=== PATIENT | female | born 1970 | race Caucasian/White ===

== ENCOUNTER 2017-11-27 00:53 | Outpatient (CLI) | payer MEDICARE, OTHER, SELFPAY ==
[2017-11-27 08:56] LABS: ALT 18 U/L (12-78); AST 13 U/L (15-37); Albumin 3.1 g/dL (3.4-5.0); Alkaline Phosphatase 60 U/L (46-116); Anion Gap 8.6 mmol/L (3-11); BUN 15 mg/dL (7-18); Bilirubin, Total 0.4 mg/dL (0.2-1.0); CO2 26.4 mmol/L (21.0-32.0); CREATININE 1.06 mg/dL (0.55-1.02); Calcium 8.6 mg/dL (8.5-10.1); Chloride 106 mmol/L (98-107); Cholesterol 130 mg/dL (50-200); Estimated GFR 55.57 (mL/min/1.73m2); Glucose 83 mg/dL (70-100); HDL Cholesterol 71 mg/dL (40-60); LDL CHOLESTEROL 48 mg/dL (<100); Sodium 141 mmol/L (136-145); TSH (W/Ref FT4) 0.82 uIU/mL (0.358-3.74); Total Protein 6.4 g/dL (6.4-8.2); Triglyceride 69 mg/dL (30-150)
== END 2017-11-27 01:13 ==
DX: R00.2 Palpitations (principal); E03.9 Hypothyroidism, unspecified; F41.9 Anxiety disorder, unspecified; F32.9 Major depressive disorder, single episode, unspecified; M79.18 Myalgia, other site; E66.9 Obesity, unspecified
CPT/HCPCS: 36415; 80053; 80061; 83721; 84443

== ENCOUNTER 2017-12-29 07:31 | Outpatient (CLI) | payer MEDICARE, OTHER, SELFPAY ==
[2017-12-29 09:05] LABS: T4 9.1 ug/dL (4.5-12.5)
[2018-01-01 10:50] LABS: DHEA Sulfate 143 ug/dl (56-283)
== END 2017-12-29 07:51 ==
PROVIDERS: Visit Provider Naturopath
DX: E03.9 Hypothyroidism, unspecified (principal); G47.00 Insomnia, unspecified
CPT/HCPCS: 36415; 82627; 84436; 84481

== ENCOUNTER 2018-07-12 08:06 | Outpatient (CLI) | payer MEDICARE, OTHER, SELFPAY ==
[2018-07-12 09:33] LABS: ALT 23 U/L (12-78); AST 13 U/L (15-37); Albumin 3.6 g/dL (3.4-5.0); Alkaline Phosphatase 93 U/L (46-116); Anion Gap 7.9 mmol/L (3-11); BUN 21 mg/dL (7-18); Bilirubin, Total 0.6 mg/dL (0.2-1.0); CO2 29.1 mmol/L (21.0-32.0); CREATININE 0.96 mg/dL (0.55-1.02); Calcium 9.3 mg/dL (8.5-10.1); Chloride 101 mmol/L (98-107); Glucose 83 mg/dL (70-100); Potassium 4.5 mmol/L (3.5-5.1); Sodium 138 mmol/L (136-145); T4 7.7 ug/dL (4.5-12.5); TSH 0.97 uIU/mL (0.358-3.74)
[2018-07-12 21:27] LABS: T3,Free 6.1 pg/ml (2.8-5.3)
[2018-07-13 10:11] LABS: Thyroglobulin Antibody 42 U/mL (<61)
[2018-07-13 10:26] LABS: DHEA Sulfate 440 ug/dl (56-283)
== END 2018-07-12 08:26 ==
PROVIDERS: Visit Provider Naturopath
DX: E03.9 Hypothyroidism, unspecified (principal)
CPT/HCPCS: 36415; 80053; 82627; 84436; 84443; 84481; 86800

== ENCOUNTER 2018-11-19 09:16 | Outpatient (CLI) | payer OTHER, SELFPAY ==
[2018-11-19 10:38] LABS: TSH (W/Ref FT4) 2.66 uIU/mL (0.36-3.74)
[2018-11-19 11:46] LABS: ALT 39 U/L (14-59); AST 32 U/L (15-37); Albumin 3.7 g/dL (3.4-5.0); Alkaline Phosphatase 96 U/L (46-116); Anion Gap 10.9 mmol/L (3-11); BUN 14 mg/dL (7-18); Bilirubin, Total 0.6 mg/dL (0.2-1.0); CO2 26.1 mmol/L (21.0-32.0); CREATININE 1.05 mg/dL (0.55-1.02); Calcium 9.4 mg/dL (8.5-10.1); Chloride 104 mmol/L (98-107); Estimated GFR 55.94 (mL/min/1.73m2); Glucose 94 mg/dL (70-100); Potassium 4.7 mmol/L (3.5-5.1); Sodium 141 mmol/L (136-145); T4 8.1 ug/dL (4.5-12.5); Total Protein 7.2 g/dL (6.4-8.2)
[2018-11-19 12:07] LABS: Vitamin D 25 Total 85.2 ng/ml (30-100)
[2018-11-19 12:33] LABS: Abs Immature Grans 0.03 k/cumm (0.0-0.09); Absolute Basophil Count 0.03 k/cumm (0.0-0.2); Absolute Eosinophil Count 0.26 k/cumm (0.0-0.7); Absolute Lymphocyte Count 1.66 k/cumm (1.2-3.4); Absolute Monocyte Count 0.61 k/cumm (0.11-0.7); Absolute Neutrophil Count 6.11 k/cumm (1.2-6.7); Basophils % 0.3; HCT 44.1 % (36.0-46.0); HGB 14.5 g/dL (12.0-15.5); Immature Grans % 0.3; Lymphocytes % 19.1; Mean Corp. HGB Concentration 32.9 g/dL (32.0-36.0); Mean Corpuscular Hemoglobin 30.4 pg (27.0-33.0); Mean Corpuscular Volume 92.5 fL (80-95); Mean Platelet Volume 10.9 fL (8.0-11.0); Neutrophils % 70.3; Platelet Count 344 x1000/uL (130-400); RBC 4.77 m/cumm (4.00-5.20); RBC Distribution Width 14.7 % (11.7-14.6)
[2018-11-19 16:12] LABS: T3,Free 4.5 pg/ml (2.8-5.3)
== END 2018-11-19 09:36 ==
PROVIDERS: Visit Provider Naturopath
DX: E03.9 Hypothyroidism, unspecified (principal); E55.9 Vitamin D deficiency, unspecified; R79.9 Abnormal finding of blood chemistry, unspecified
CPT/HCPCS: 36415; 80053; 82306; 84436; 84443; 84481; 85025

== ENCOUNTER 2019-01-18 00:42 | Outpatient (CLI) | payer OTHER, SELFPAY ==
--- NOTE | 2019-01-18 12:46 | DI.MAMMO_ITS ---
EXAM: MG MAMMO SCREENING CLINICAL HISTORY: screening TECHNIQUE: Bilateral full field digital CC and MLO mammographic images were obtained with 3D tomosyn thesis and utilizing computer aided detection (CAD). COMPARISON: Available for comparison. FINDINGS: Masses/Architectural Distortion: There is an area of breast asymmetry in the upper outer quadrant of the right breast. The area should be further evaluated with spot compression view. Ultrasound may b e indicated at that time. Microcalcifications: No suspicious pleomorphic-type are seen. Skin Thickening/Nipple Retraction: None. IMPRESSION: 1. Additional views of the right breast as described above. 2. Ultrasound may be indicated at that time. BI-RADS Cat 0 - Assessment Incomplete: Need additional imaging evaluation Breast Density - Category B - Scattered areas of fibroglandular density A negative radiographic report should not delay biopsy if a dominant or clinically suspicious mass is present. Up to ten percent of cancers are not identified on mammography. A negative report may reinforce clinical impression. Adenosis and dense breasts may obscure an underlying neoplasm. False positive reports average 6 to 10%. Patient will receive a letter notifying them of these results.
== END 2019-01-18 01:02 ==
PROVIDERS: PCP Nurse Practitioner; Visit Provider Nurse Practitioner
DX: Z12.31 Encounter for screening mammogram for malignant neoplasm of breast (principal); R92.8 Other abnormal and inconclusive findings on diagnostic imaging of breast
CPT/HCPCS: 77063; 77067

== ENCOUNTER 2019-01-23 00:58 | Outpatient (CLI) | payer OTHER, SELFPAY ==
--- NOTE | 2019-01-23 09:06 | DI.MAMMO_ITS ---
EXAM: US BREAST RT LIMITEDand mammogram call back views CLINICAL HISTORY: rt breast asymmetry, f/u mammo TECHNIQUE: Mammograms were interpreted according to the usual protocol including computer analysis w ith CAD system, tomosynthesis and C-view imaging. Ultrasound performed using standard protocol. COMPARISON: Screening Bilat Mammo from 11/17/2016 MG MAMMO SCREENING from 01/18/2019 MG MAMMO SCREEN CALL BACK UNI from 01/23/2019 FINDINGS: Additional view mammogram: The spot compression views with tomography were performed in the CC and M LO projections. There is a small area of circumscribed nodularity in the central right breast in the upper outer quadrant. There has been no change when compared with the previous exam. Right breast ultrasound: Right breast ultrasound shows no evidence of a cyst or solid mass. IMPRESSION: Category 1, negative mammogram. Yearly screening mammography is recommended. BI-RADS Cat 1 - Negative. Breast Density - Category B - Scattered areas of fibroglandular density.
== END 2019-01-23 01:18 ==
PROVIDERS: PCP Nurse Practitioner; Visit Provider Nurse Practitioner
DX: Z12.31 Encounter for screening mammogram for malignant neoplasm of breast (principal); R92.8 Other abnormal and inconclusive findings on diagnostic imaging of breast; N60.81 Other benign mammary dysplasias of right breast
CPT/HCPCS: 76642; 77063; 77067

== ENCOUNTER 2019-06-07 01:49 | Outpatient (CLI) | payer OTHER, SELFPAY ==
[2019-06-07 16:12] LABS: TSH (W/Ref FT4) 2.02 uIU/mL (0.36-3.74)
[2019-06-07 16:32] LABS: T4 7.5 ug/mL (4.7-13.3)
[2019-06-07 21:42] LABS: T3, Total 146 ng/dL (97-169)
== END 2019-06-07 02:09 ==
PROVIDERS: PCP Nurse Practitioner; Visit Provider Chiropractor
DX: R53.83 Other fatigue (principal)
CPT/HCPCS: 36415; 84436; 84443; 84480

== ENCOUNTER 2019-09-12 02:26 | Outpatient (CLI) | payer OTHER, SELFPAY ==
[2019-09-12 12:52] LABS: FREE T4 0.98 ng/dL (0.76-1.46); TSH 2.88 uIU/mL (0.36-3.74)
[2019-09-12 17:36] LABS: Progesterone 2.1 ng/mL (See Table)
[2019-09-13 09:04] LABS: DHEA Sulfate 132 ug/dL (56-283)
[2019-09-16 15:03] LABS: Estrone 151 pg/mL
[2019-09-17 15:07] LABS: Testosterone, Free 0.51 ng/dL (0.06-0.95); Testosterone, Total 32 ng/dL (8-60)
== END 2019-09-12 02:46 ==
PROVIDERS: PCP Nurse Practitioner; Visit Provider Naturopath
DX: N95.1 Menopausal and female climacteric states (principal); E03.9 Hypothyroidism, unspecified; E55.9 Vitamin D deficiency, unspecified
CPT/HCPCS: 36415; 82306; 82627; 84402; 84403; 82679; 84144; 84439; 84443; 84481

== ENCOUNTER 2019-12-25 13:48 | Outpatient (CLI) | payer OTHER, SELFPAY ==
--- NOTE | 2019-12-25 09:45 | DI.RAD_ITS ---
EXAM: XR KNEE RT 3V AP,LAT,TIFFANIE CLINICAL HISTORY: right knee pain M25.561. TECHNIQUE: 2D digital imaging was performed. COMPARISON: No exams were available for comparison FINDINGS: BONES: No acute fracture is present. No bony destructive lesion is seen. There is a small enthesophyt e at the superior patella. JOINTS: The knee is normally aligned. No joint effusion is seen. Tiny spurs are seen at the posterior patella and the lateral femoral tibial joint. SOFT TISSUE: Normal. IMPRESSION: Mild degenerative changes of the right knee. DATA REPOSITORY: RADIATION DOSE DELIVERED:
== END 2019-12-25 14:08 ==
PROVIDERS: PCP Nurse Practitioner; Visit Provider Nurse Practitioner Family
DX: M17.11 Unilateral primary osteoarthritis, right knee (principal)
CPT/HCPCS: 73562

== ENCOUNTER 2020-04-02 02:24 | Outpatient (CLI) | payer OTHER, SELFPAY ==
--- NOTE | 2020-04-02 12:15 | DI.MAMMO_ITS ---
EXAM: MG MAMMO SCREENING CLINICAL HISTORY: screening,Z12.39. TECHNIQUE: Bilateral full field digital CC and MLO mammographic images were obtained with 3D tomosyn thesis and utilizing computer aided detection (CAD). COMPARISON: Prior mammograms dating back to 2017, the most recent being January 2019. Breast ultra sound January 2019 was reviewed FINDINGS: There are no CAD designations. No new left breast findings. In the right breast there is a benign appearing noncalcified nodule loc ated 7 centimetres in from the nipple measuring 7 x 5 millimeters. This has appearance of benign int ramammary lymph node and appears unchanged from January 2019 and was also evident in 2017. There are no malignant-appearing microcalcification groups in this region or elsewhere in either breast. Ther e is no significant architectural distortion nor skin thickening-retraction. IMPRESSION: Stable benign findings. No radiographic evidence of malignancy. BI-RADS Category 2 - Benign Findings Breast Density - Category A - Almost entirely fatty Breast density Category C or D implies that the patient has dense breast tissue. Dense breast tissue can make it harder to find cancer on a mammogram. Dense breast tissue is also associated with an incr eased risk of breast cancer. This information about the result of the mammogram report was provided to the patient to raise their awareness. Use this report when you speak with the patient about their risks for breast cancer, which includes their family history. At that time, you may recommend additional screening tests (Ultrasoun d or MRI) as these tests may add significant information. A negative radiographic report should not delay biopsy if a dominant or clinically suspicious mass is present. Up to ten percent of cancers are not identified on mammography. A negative report may reinforce clinical impression. Adenosis and dense breasts may obscure an underlying neoplasm. False positive reports average 6 to 10%. Patient will receive a letter notifying them of these results.
== END 2020-04-02 02:25 ==
PROVIDERS: PCP Nurse Practitioner; Visit Provider Nurse Practitioner
DX: Z12.31 Encounter for screening mammogram for malignant neoplasm of breast (principal)
CPT/HCPCS: 77063; 77067

== ENCOUNTER 2020-04-20 07:10 | Outpatient (CLI) | payer OTHER, SELFPAY ==
[2020-04-20 13:17] LABS: Abs Immature Grans 0.05 10^3/uL (0.0-0.06); Absolute Basophil Count 0.04 10^3/uL (0.0-0.2); Absolute Lymphocyte Count 1.51 10^3/uL (1.2-3.4); Absolute Monocyte Count 0.66 10^3/uL (0.1-0.8); Basophils % 0.3; Eosinophils % 0.8; HCT 42.3 % (36.0-46.0); HGB 13.7 g/dL (11.2-15.7); Immature Grans % 0.4; Lymphocytes % 12.1; MCH 29.7 pg (27.0-33.0); MCHC 32.4 % (32.0-36.0); MCV 91.6 fL (80-95); Monocytes % 5.3; Neutrophils % 81.1; Nucleated RBC 0 %; Platelet Count 336 10^3/uL (130-400); RBC 4.62 10^6/uL (3.93-5.22); RDW 14.2 % (11.7-14.6); RDW-SD 47.9 fL; WBC 12.45 10^3/uL (4.4-10.8)
[2020-04-20 14:03] LABS: ALT 33 U/L (14-59); AST 20 U/L (15-37); Albumin 3.7 g/dL (3.4-5.0); Alkaline Phosphatase 94 U/L (46-116); Anion Gap 9.4 mmol/L (3-11); BUN 15 mg/dL (7-18); Bilirubin, Total 0.5 mg/dL (0.2-1.0); CO2 25.6 mmol/L (21.0-32.0); CREATININE 0.9 mg/dL (0.55-1.02); Calcium 9.2 mg/dL (8.5-10.1); Chloride 104 mmol/L (98-107); Glucose 83 mg/dL (74-106); Potassium 4.5 mmol/L (3.5-5.1); Sodium 139 mmol/L (136-145); T4 7.6 ug/mL (4.7-13.3); TSH 1.24 uIU/mL (0.36-3.74); Total Protein 7.3 g/dL (6.4-8.2)
== END 2020-04-20 07:11 | disposition home or self-care (01) ==
LOC: LBO 07:10
PROVIDERS: PCP Nurse Practitioner
DX: N95.1 Menopausal and female climacteric states (principal); E03.9 Hypothyroidism, unspecified; R59.9 Enlarged lymph nodes, unspecified
CPT/HCPCS: 36415; 80053; 84436; 84443; 84481; 85025

== ENCOUNTER 2020-08-07 10:41 | Outpatient (CLI) | payer OTHER, SELFPAY ==
[2020-08-07 10:06] LABS: Abs Immature Grans 0.02 10^3/uL (0.0-0.06); Absolute Basophil Count 0.05 10^3/uL (0.0-0.2); Absolute Eosinophil Count 0.14 10^3/uL (0.0-0.7); Absolute Lymphocyte Count 2.14 10^3/uL (1.2-3.4); Absolute Monocyte Count 0.68 10^3/uL (0.1-0.8); Absolute Neutrophil Count 6.18 10^3/uL (1.2-6.7); Basophils % 0.5; Eosinophils % 1.5; HCT 44.9 % (36.0-46.0); HGB 14.6 g/dL (11.2-15.7); Immature Grans % 0.2; Lymphocytes % 23.2; MCH 30.2 pg (27.0-33.0); MCHC 32.5 % (32.0-36.0); MPV 9.5 fL (8.0-11.0); Monocytes % 7.4; Neutrophils % 67.2; Nucleated RBC 0 %; Platelet Count 343 10^3/uL (130-400); RBC 4.83 10^6/uL (3.93-5.22); RDW 14.2 % (11.7-14.6); RDW-SD 48.6 fL; WBC 9.21 10^3/uL (4.4-10.8)
== END 2020-08-07 10:42 | disposition home or self-care (01) ==
LOC: LBO 10:43
PROVIDERS: PCP Nurse Practitioner; Visit Provider Naturopath
DX: D72.829 Elevated white blood cell count, unspecified (principal)
CPT/HCPCS: 36415; 85025

== ENCOUNTER 2020-09-30 10:13 | Day surgery (SDC) | payer OTHER, SELFPAY ==
--- NOTE | 2020-09-30 07:00 | W.PREOPHP ---
Date of service: 09/30/20 Time of Service: 12:15 Assessment and Plan Assessment and plan (1) Encounter for colorectal cancer screening: Status: Acute Assessment and plan: The patient is here for Colonoscopy pre-op. She has no family history of colon cancer. She has not had any bowel habit changes. -Discussed colonoscopy bowel prep as well as the procedure. Discussed possible complications of the procedure to include bleeding, pain, perforation, missed small lesion/polyp, sore throat, aspiration and adverse reaction to the medications. Questions were answered to patient?s satisfaction. No guarantees were implied or given. History of Present Illness Narrative: 50 y/o female with history of PTSD, depression and obesity presents for her first colonoscopy screening pre-op. She describes a possible family history of colon cancer in her maternal grandfather. She denies any changes in bowel habits including black tarry stools, abdominal pain, diarrhea or constipation. She does describe a history of hemorrhoids and intermittently notes a small amount of blood on the toilet paper following BMs. She denies constitutional symptoms. Denies use of marijuana or any other recreational or illegal drugs. She denies chest pain, dyspnea or dyspnea with exertion. She reports being physically active participating in spinning, mountain biking, yoga and walking. She denies prior history or family history of adverse reactions or complications with anesthesia. She expresses concern regarding waking up from anesthesia. She states that in the past she has received 6 treatments of electroconvulsive therapy (ECT) and following each treatment upon waking she had panic attacks. The patient denies any history of stroke, NE, bleeding or clotting disorders. She denies having any implanted metal in her body. Review of Systems Cardiovascular Cardiovascular: Denies chest pain, Denies chest pain at rest, Denies irregular heart rhythm, Denies dyspnea and Denies dyspnea on exertion Respiratory Respiratory: Denies cough, Denies dyspnea and Denies dyspnea on exertion Gastrointestinal Gastrointestinal: Reports as per HPI Genitourinary Genitourinary: Denies dysuria, Denies urinary incontinence and Denies urinary urgency Endocrine Endocrine: Reports system reviewed and no additional complaints, except as documented Hematologic/Lymphatic Hematologic/Lymphatic: Denies easy bruising and Denies lymphadenopathy [facility] Medical History Anesthesia Per ptsevere PTSD, stated she has panic attacks while coming out of anesthesia and she is to have her glasses on and her phone which she stated acts as a security blanket for her. Anxiety Carpal tunnel syndrome of left wrist Cubital tunnel syndrome on left Depressive disorder H/o ECT Hypothyroidism Knee pain, bilateral Left-sided low back pain with left-sided sciatica Obesity Palpitations r/t anxiety, has had holter, stress testing, all normal PMS (premenstrual syndrome) PTSD (post-traumatic stress disorder) counseling: Ab [facility]ila Sternocleidomastoid muscle tenderness Thoracic outlet syndrome Surgical History (Updated 09/30/20 @ 11:12 by Karen Ellis) History of wisdom tooth extraction Family History (Updated 03/25/20 @ 12:46 by Karis Ruff) Mother Diabetes Essential hypertension Arthritis Hyperlipidemia Father Essential hypertension Hyperlipidemia Depressive disorder Sister Endometriosis Substance abuse Sister Endometriosis Depression Sister Arthritis Depressive disorder Substance abuse Brother Asthma Maternal Grandfather Cancer Colon or stomach? Paternal Grandfather Heart disease Depressive disorder Maternal Grandmother No problems noted. Paternal Grandmother Diabetes Brother No problems noted. Social History Smoking/Tobacco Use Status: Former Tobacco Use tobacco type: cigarettes Quit Date: 02/06/99 Second Hand Exposure: Yes Smoking risk assessment performed?: Yes Alcohol Intake: current Alcohol Intake frequency: a few times a week Alcohol type: beer Drug use: Never Substance use type: does not use Caregiver/Support person: No Household members: none Housing: house Communication Needs: None Do you need help understanding health information?: Never Pets and animals: Yes Pets and animals: cat(s) Sexually active: No Do you think of yourself as: straight/heterosexual Current gender identity: female What is your relationship status?: never How often do you talk on the phone with friends or family?: once per week How often do you get together with friends or relatives?: never How often do you attend lutheran or muslim services?: decline to answer Do you belong to any clubs or organized social groups?: no Panel score (0-1 are the most socially isolated patients): 0 What type of physical activity do you participate in: resistance training and other Details: cardio, strength Duration: 30-45 minutes/day Frequency: 5-6 times per week Velma/Adventist: No preference Special velma needs: No Seatbelt use: always Helmet use: Yes Helmet use: always Drive intox or ride w/intox patient transportation driver: No Do you feel safe at home: Yes Do you feel safe in your relationship?: Yes Meds Allergies and Home Medications Allergies Allergy/AdvReac Type Severity Reaction Status Date / Time fluvoxamine maleate Allergy Severe ITCHING, Verified 09/30/20 11:07 [From Luvox] SNEEZING banana Allergy Intermediate ITCH Verified 09/30/20 11:07 duloxetine HCl Allergy Intermediate Verified 09/30/20 11:07 [From Cymbalta] kiwi Allergy Mild Verified 09/30/20 11:07 aripiprazole [From Abilify] Allergy Unknown Verified 09/30/20 11:07 bupropion Allergy Unknown Verified 09/30/20 11:07 latex Allergy Unknown Verified 09/30/20 11:07 trazodone Allergy Unknown Verified 09/30/20 11:07 clonidine AdvReac Severe SEVERE Verified 09/30/20 11:07 H/A, IRREGULAR HR, CHEST PAIN, INSOMNIA lurasidone HCl [From Latuda] AdvReac Severe SUICIDAL Verified 09/30/20 11:07 THOUGHTS Home Medications Medication Instructions Recorded Confirmed Type multivitamin [Daily Value] 1 ea PO DAILY 05/04/17 09/30/20 History nystatin 100,000 unit/gram topical 1 applic TP BID PRN gm 12/18/18 09/30/20 History powder thyroid (pork) 90 mg tablet 60 mg PO DAILY tab-cap 12/18/18 09/30/20 History cholecalciferol (vitamin D3) 125 10,000 unit PO DAILY tab 03/24/20 09/30/20 History mcg (5,000 unit) tablet lorazepam 0.5 mg tablet 0.5 mg PO BID PRN 03/24/20 09/30/20 History magnesium oxide 500 mg capsule 500 mg PO DAILY cap 03/24/20 09/30/20 History ascorbic acid (vitamin C) 500 mg 1,000 mg PO DAILY cap 06/18/20 09/30/20 History capsule prasterone (dhea) 25 mg capsule 25 mg PO DAILY 06/18/20 09/30/20 History ibuprofen 800 09/30/20 History Exam Const General: healthy appearing and comfortable Resp Effort & Inspection: normal respiratory effort Auscultation: clear to auscultation bilaterally Cardio Rate: regular rate Rhythm: regular rhythm Heart Sounds: no click, no gallops and no murmurs
--- NOTE | 2020-09-30 07:01 | W.COLOREPORT ---
Date of service: 09/30/20 Time of Service: 12:20 Colonoscopy Report Date of procedure: 09/30/20 Pre-op diagnosis general: Colon Cancer screening Post-op diagnosis procedure note: other (mild diverticulosis) Procedure: Colonoscopy Surgeon: Yolanda Hoffmann Anesthesia Type: General:No Airway (ASA 2/ Lopez Serrano, SHANDA) Estimated blood loss (mL): 0 Pathology: none sent Complications: None Disposition: same day Indications: The patient is here for Colonoscopy pre-op. She has no family history of colon cancer. She has not had any bowel habit changes. -Discussed colonoscopy bowel prep as well as the procedure. Discussed possible complications of the procedure to include bleeding, pain, perforation, missed small lesion/polyp, sore throat, aspiration and adverse reaction to the medications. Questions were answered to patient?s satisfaction. No guarantees were implied or given. Prep: Miralax/Dulcolax Procedure Start Time: 12:20 Procedure End Time: 12:49 Retraction Time: 13 minutes Findings: mild diverticulosis Procedure Description: After informed consent was obtained the patient was taken to the procedure room and placed in a left decubitous position. Monitors were applied and a time out was done. The patients name, date of , procedure, allergies to medications and metal in their body was reviewed. The patient was then sedated. Once sedated and comfortable a rectal exam was done. External exam was normal. Internal exam revealed a normal sphincter tone and no palpable masses. The scope was then introduced and retro-flexed. No internal hemorrhoids, polyps or masses were identified on retro-flexion. The scope was then advanced to the cecum with some difficulty due to her body habitus. The ileocecal vlave and appendiceal orifice were identified. The prep was adequate. The scope was then slowly retracted over 13 minutes back into the rectum. There were no polyps. There was mild diverticulosis noted. The scope was removed and the patient was woken up and taken back to Same day surgery in stable condition. The patient tolerated the procedure well and there were no immediate complications. Follow up: The patient should follow up in 10 years unless they develop changes in bowel habits or other new gastrointestinal complaints.
--- NOTE | 2020-09-30 07:02 | PDOC.DSDIS_ITS ---
Discharge Plan Disposition Patient Disposition: HOME Condition: Good Discharge Details Reason For Visit: Colonoscopy Attending Provider: Yolanda Hoffmann Primary Care Provider: Marci Rosa Home Meds and New Rx's Prescriptions: Continued nystatin 100,000 unit/gram powder 1 applic TP BID PRN (Reason: Yeast) RF: 0 lorazepam 0.5 mg tablet 0.5 mg PO BID PRNRF: 0 ascorbic acid (vitamin C) 500 mg capsule 1,000 mg PO DAILY RF: 0 prasterone (dhea) [DHEA] 25 mg capsule 25 mg PO DAILY RF: 0 multivitamin [Daily Value] 1 EACH tablet 1 ea PO DAILY RF: 0 thyroid (pork) [[place] Thyroid] 90 mg tablet 60 mg PO DAILY RF: 0 cholecalciferol (vitamin D3) 125 mcg (5,000 unit) tablet 10,000 unit PO DAILY RF: 0 magnesium oxide 500 mg capsule 500 mg PO DAILY RF: 0 ibuprofen 800 mg Tablet 800 RF: 0 Discharge Instructions Instructions: Diverticulosis (DC) Additional Instructions: Findings: mild diverticulosis Follow up: 10 years Please call if you develop: fevers >101.5 Nausea or Vomiting Abdominal pain that is not transient Rectal bleeding that is more then a tbsp A hard abdomen and inability to pass gas DAY SURGERY UNIT POST ENDOSCOPY INSTRUCTIONS Instructions for everyone who is given Anesthesia: For your safety, please do the following for the next 24 Hours: a. Do not drive or operate dangerous equipment b. Do not drink alcohol beverages or use any recreational drugs for the first 24 hours or while taking pain medications. The medications in your body may have a reaction that can be dangerous. c. Do not make any important decisions or sign any important papers 1. Generally there are no restrictions on your activity after a day or so has gone by, but you may feel a bit fatigued for a few days. 2. After you arrive home you may have a light meal and return to a normal diet as you can tolerate it without feeling sick to your stomach. 3. After surgery, you may feel pain or discomfort. This should be only transient, but if it persists please contact your doctor. 4. If there are any questions regarding the findings of your procedure, please feel free to contact your doctor. 6. If you are unable to contact your doctor with a problem, contact the hospital at [phone]. 7. Continue all your regular medications unless directed otherwise. I understand the above instructions and have no questions. Signature of Patient or Responsible Adult Escort Date/Time Name of Responsible Adult Escort Signature of Nurse Date/Time Activity:: Activity as Tolerated Diet:: High Fiber diet Discharge Orders Discharge Orders: Discharge Order (Routine); Ordered 09/30/20 Ordered By: Yolanda Hoffmann DS: Diagnosis Discharge Diagnosis (1) Encounter for colorectal cancer screening: Status: Acute
[2020-09-30 11:16] VITALS: BP 139/96; PULSE 75; RESP 16; TEMP 36.5; O2SAT 100
--- NOTE | 2020-09-30 11:42 | ANES.PREOP_ITS ---
General Info Date of Service Date Performed: 09/30/20 Height: 5 ft Weight: 101.3 kg Body Mass Index (BMI): 43.6 Surgical Procedure: Operation Date: 09/30/20 10:50 Proposed Procedures Side Surgeon jared Hoffmann MD Meds Allergies and Home Medications Allergies Allergy/AdvReac Type Severity Reaction Status Date / Time fluvoxamine maleate Allergy Severe ITCHING, Verified 09/30/20 11:07 [From Luvox] SNEEZING banana Allergy Intermediate ITCH Verified 09/30/20 11:07 duloxetine HCl Allergy Intermediate Verified 09/30/20 11:07 [From Cymbalta] kiwi Allergy Mild Verified 09/30/20 11:07 aripiprazole [From Abilify] Allergy Unknown Verified 09/30/20 11:07 bupropion Allergy Unknown Verified 09/30/20 11:07 latex Allergy Unknown Verified 09/30/20 11:07 trazodone Allergy Unknown Verified 09/30/20 11:07 clonidine AdvReac Severe SEVERE Verified 09/30/20 11:07 H/A, IRREGULAR HR, CHEST PAIN, INSOMNIA lurasidone HCl [From Latuda] AdvReac Severe SUICIDAL Verified 09/30/20 11:07 THOUGHTS Home Medication Medication Instructions Recorded multivitamin [Daily Value] 1 ea PO DAILY 05/04/17 nystatin 100,000 unit/gram topical 1 applic TP BID PRN gm 12/18/18 powder thyroid (pork) 90 mg tablet 60 mg PO DAILY tab-cap 12/18/18 cholecalciferol (vitamin D3) 125 10,000 unit PO DAILY tab 03/24/20 mcg (5,000 unit) tablet lorazepam 0.5 mg tablet 0.5 mg PO BID PRN 03/24/20 magnesium oxide 500 mg capsule 500 mg PO DAILY cap 03/24/20 ascorbic acid (vitamin C) 500 mg 1,000 mg PO DAILY cap 06/18/20 capsule prasterone (dhea) 25 mg capsule 25 mg PO DAILY 06/18/20 ibuprofen 800 09/30/20 Current Visit Medications: Current Medications Generic Name Dose Route Start Last Admin Trade Name Freq PRN Reason Stop Dose Admin Hyoscyamine Sulfate 0.125 mg 09/30/20 07:03 Hyoscyamine 0.125 Mg Sl/Oral/Chew SL DIRECTED PRN Ringer's Solution 1,000 mls @ 80 mls/hr 09/30/20 06:00 IV 10/29/20 23:59 INFUSION KING IV Miscellaneous Supplies 1 each 09/30/20 06:00 Iv Access IV 10/29/20 23:59 DIRECTED KING Ondansetron HCl 4 mg 09/30/20 07:03 Ondansetron 4 Mg/2 Ml Vial IVP Q4H PRN PRN Nausea / Vomiting Sodium Chloride 0 ml 09/30/20 06:00 Normal Saline Flush 10 Ml Syr IV 10/29/20 23:59 PRN PRN PFSH Active Problems Active Problems: Problem Status Onset Code Anxiety 10/17/14 F41.9 Carpal tunnel syndrome of left wrist 06/05/17 G56.02 Cubital tunnel syndrome on left 06/05/17 G56.22 Depressive disorder 10/05/12 F32.9 Hypothyroidism 10/05/12 E03.9 Obesity 10/11/13 E66.9 Yeast dermatitis B37.2 Left knee pain M25.562 Perimenopausal N95.1 Encounter for colorectal cancer screening Z12.11, Z12.12 PMS (premenstrual syndrome) N94.3 Medical History Medical History Anesthesia Per ptsevere PTSD, stated she has panic attacks while coming out of anesthesia and she is to have her glasses on and her phone which she stated acts as a security blanket for her. Anxiety Carpal tunnel syndrome of left wrist Cubital tunnel syndrome on left Depressive disorder H/o ECT Hypothyroidism Knee pain, bilateral Left-sided low back pain with left-sided sciatica Obesity Palpitations r/t anxiety, has had holter, stress testing, all normal PMS (premenstrual syndrome) PTSD (post-traumatic stress disorder) counseling: Ab Avila Sternocleidomastoid muscle tenderness Thoracic outlet syndrome Surgical History Surgical History (Updated 09/30/20 @ 11:12 by Karen Ellis) History of wisdom tooth extraction Tobacco Smoking/Tobacco Use Status: Former Tobacco Use Passive smoking exposure: Yes Second hand exposure: Yes Alcohol Alcohol Intake: current Alcohol intake frequency: a few times a week Alcohol type: beer Substance Use Substance use: Never Substance use type: does not use Vital Signs and Lab Results Vital Signs Most Recent Vital Signs in EMR: Most Recent Vital Signs Temp Pulse Resp BP Pulse Ox 36.5 C 75 16 139/96 H 100 09/30/20 11:16 09/30/20 11:16 09/30/20 11:16 09/30/20 11:16 09/30/20 11:16 Lab Results Blood Type / Crossmatch: No Data to Display Complete Blood Count: No Data to Display Complete Metabolic Panel: No Data to Display Liver Function Panel: No Data to Display Coagulation Panel: No Data to Display Cardiac Panel: No Data to Display Arterial Blood Gas: No Data to Display Venous Blood Gas: 2 No Data to Display Pancreas Panel: No Data to Display Thyroid Panel: No Data to Display Infectious Disease: Coronavirus (COVID-19)(PCR) Negative (Negative) 09/29/20 08:44 09/29/20 Coronavirus 2019 Source Nasal/Nares 09/29/20 08:44 09/29/20 Blood Cultures: No Data to Display Toxicology Panel: No Data to Display Panel: No Data to Display Anesthesia Assessment and Plan Anesthesia History Personal History: No History of Anesthesia Complications Family History: No Family History of Anesthesia Complications Exercise Tolerance Exercise Tolerance: Metabolic Equivalents>4 Pertinent Negatives Pertinent Negatives: No Major Cardiovascular Symptoms or Complaints and No Major Pulmonary Symptoms or Complaints Cardiac & Pulmonary Exam Cardiac Exam: Normal S1/S2 Heart Sounds Pulmonary Exam: Clear Bilateral Breath Sounds Airway Exam Known Difficult Airway: No Mallampati Class: 3 Mouth Opening: Normal (> 3cm) Thyromental Distance: Greater than 3 cm Neck Range of Motion: Full ROM Neck Circumference: Normal Teeth Condition: Loose or Chipped (Bottom front chip) ASA Classification ASA Score: ASA 3 Emergency Case?: No NPO Status NPO Status: NPO Clears >2 hours, Solids >8 hours Status Status: Negative HCG Anesthesia Plan Resuscitation Status: Full Code Anesthesia Technique: General Anesthesia Airway Planned: Natural Airway Monitors Used: Standard Monitors
[2020-09-30 11:43] VITALS: BMI 43.6
[2020-09-30] MEDS: Lactated Ringers 1,000 ML 80 ML IV (12:00)
[2020-09-30 12:56] VITALS: BP 117/63; PULSE 66; RESP 24; TEMP 36.3; O2SAT 98
[2020-09-30] MEDS: Hyoscyamine 0.125 MG SL/ORAL/CHEW SL (13:06)
[2020-09-30 13:25] VITALS: BP 122/64; PULSE 67; RESP 18; TEMP 36.3; O2SAT 98
[2020-09-30] MEDS: diphenhydrAMINE 25 MG CAP 50 MG PO (14:19)
[2020-09-30 14:30] VITALS: BP 128/77; PULSE 73; RESP 18; TEMP 36.1; O2SAT 100
--- NOTE | 2020-09-30 15:48 | W.ANESPOSTOP ---
Postoperative Evaluation Date, Time and Location Date Performed: 09/30/20 Time Performed: 15:48 Patient Location: Day Surgery Unit Vital Signs Most Recent Imported Vital Signs: Most Recent Vital Signs Temp Pulse Resp BP Pulse Ox 36.3 C L 67 18 122/64 98 09/30/20 13:25 09/30/20 13:25 09/30/20 13:25 09/30/20 13:25 09/30/20 13:25 Most Recent Manually Entered Vital Signs: Adult Blood Pressure: 128/72 Heart Rate: 88 Respirations: 16 Oxygen Saturation (%): 98 Temperature (C): 36.3 C Pain Score (0-10 Scale): 1 Pain Score Most Recent Pain Score: Most Recent Pain Score Pain Level 3 09/30/20 13:25 Assessment Mental Status: Awake (Alert & Oriented to Patient Baseline) Airway and Respiratory Function: Patent airway with normal (patient baseline) respiratory exam Cardiovascular Function: Hemodynamically Stable Hydration Status: Adequately Hydrated Nausea & Vomiting: No Nausea or Vomiting Pain: Pain is tolerable per patient Peripheral Nerve Block: Patient did not receive a nerve block
[2020-09-30 15:49] VITALS: BP 128/72; PULSE 88; RESP 16; TEMPC 36.3; O2SAT 98
== END 2020-09-30 15:38 | disposition home or self-care (01) ==
LOC: SUR 10:14
PROVIDERS: PCP Nurse Practitioner; Visit Provider Surgery
PROC: 0DJD8ZZ Inspection of Lower Intestinal Tract, Via Natural or Artificial Opening Endoscopic (ICD-10-PCS; CPT 45378; principal; 2020-09-30 10:45)
DX: Z12.11 Encounter for screening for malignant neoplasm of colon (principal); K57.30 Diverticulosis of large intestine without perforation or abscess without bleeding; E66.9 Obesity, unspecified; F41.9 Anxiety disorder, unspecified
CPT/HCPCS: 45378; J2250; J3490

== ENCOUNTER 2020-12-29 04:24 | Outpatient (CLI) | payer OTHER, SELFPAY ==
[2020-12-29 10:41] LABS: Abs Immature Grans 0.01 10^3/uL (0.0-0.06); Absolute Basophil Count 0.04 10^3/uL (0.0-0.2); Absolute Eosinophil Count 0.14 10^3/uL (0.0-0.7); Absolute Lymphocyte Count 1.83 10^3/uL (1.2-3.4); Absolute Monocyte Count 0.63 10^3/uL (0.1-0.8); Absolute Neutrophil Count 5.47 10^3/uL (1.2-6.7); Basophils % 0.5; Eosinophils % 1.7; HCT 43.1 % (36.0-46.0); HGB 13.9 g/dL (11.2-15.7); Immature Grans % 0.1; Lymphocytes % 22.5; MCH 29.5 pg (27.0-33.0); MCHC 32.3 % (32.0-36.0); MCV 91.5 fL (80-95); MPV 9.8 fL (8.0-11.0); Monocytes % 7.8; Neutrophils % 67.4; Nucleated RBC 0 %; Platelet Count 368 10^3/uL (130-400); RBC 4.71 10^6/uL (3.93-5.22); RDW 14.4 % (11.7-14.6); RDW-SD 48.6 fL; WBC 8.12 10^3/uL (4.4-10.8)
[2020-12-29 10:51] LABS: Hemoglobin A1C 5.1 % (<5.7)
[2020-12-29 11:57] LABS: ALT 22 U/L (14-59); AST 14 U/L (15-37); Albumin 3.9 g/dL (3.4-5.0); Alkaline Phosphatase 98 U/L (46-116); Anion Gap 9.5 mmol/L (3-11); BUN 15 mg/dL (7-18); Bilirubin, Total 0.6 mg/dL (0.2-1.0); CO2 26.5 mmol/L (21.0-32.0); CREATININE 1.1 mg/dL (0.55-1.02); Calcium 9.1 mg/dL (8.5-10.1); Calculated LDL 95 mg/dL (<100); Chloride 104 mmol/L (98-107); Cholesterol 176 mg/dL (<200); Estimated GFR 52.58 (mL/min/1.73m2); Ferritin 25 ng/mL (8-252); Folate 19.3 ng/mL (8.6-20.0); Glucose 85 mg/dL (74-106); HDL Cholesterol 66 mg/dL (40-60); Magnesium 2.2 mg/dL (1.8-2.4); Potassium 4.3 mmol/L (3.5-5.1); Sodium 140 mmol/L (136-145); TSH 1.35 uIU/mL (0.36-3.74); Total Protein 7.4 g/dL (6.4-8.2); Triglyceride 76 mg/dL (<150); Vitamin B12 582 pg/mL (193-986)
[2020-12-29 12:14] LABS: C-Reactive Protein 0.27 mg/dL (0.0-0.3)
[2020-12-29 17:50] LABS: T3,Free 4.8 pg/mL (2.8-5.3)
[2020-12-31 01:58] LABS: Vitamin D 25 Total 78.3 ng/mL (30-100)
== END 2020-12-29 04:25 | disposition home or self-care (01) ==
PROVIDERS: PCP Nurse Practitioner; Visit Provider Psychiatry & Neurology Psychiatry
DX: F32.1 Major depressive disorder, single episode, moderate (principal)
CPT/HCPCS: 36415; 80053; 80061; 82306; 82607; 82728; 82746; 83036; 83735; 84439; 84443; 84481; 85025; 86140

== ENCOUNTER 2021-04-15 14:58 | Outpatient (REF) | payer OTHER, SELFPAY ==
--- NOTE | 2021-04-15 13:30 | PAPFT_PTH ---
PATIENT: Yamile Ren LOC: [facility] #:[id number] AGE/SX: 51/F ROOM: RE04/15/[address]: Marci Rosa, PhD [employer] : 1970 BED: DIS: 04/15/2021 SPEC #: [id number] RECD: 04/16/21 13:11 STATUS: GRZEGORZ REJo #: [id number] HAKEEM: 04/15/21 13:[address]: Marci Rosa DEPT: [facility] Cytology RECD BY: Grace Thomas Tissues: 1 - CX/ENDOCX FOR PAP SMEARS Procedures: PAP THIN PREP/UVM Screening HPV DNA PROBE Comments: [id number]
== END 2021-04-15 14:59 | disposition home or self-care (01) ==
LOC: LBN 14:58
PROVIDERS: PCP Nurse Practitioner; Visit Provider Nurse Practitioner
DX: Z12.4 Encounter for screening for malignant neoplasm of cervix (principal); Z11.51 Encounter for screening for human papillomavirus (HPV)
CPT/HCPCS: 88142; 87624

== ENCOUNTER 2021-05-14 01:04 | Outpatient (CLI) | payer OTHER, SELFPAY ==
--- NOTE | 2021-05-14 07:15 | DI.MAMMO_ITS ---
Exam(s) MAMMO SCREENING EXAM: MAMMO SCREENING CLINICAL HISTORY: screening.z12.39. TECHNIQUE: Bilateral full field digital CC and MLO mammographic images were obtained with 3D tomosyn thesis and utilizing computer aided detection (CAD). COMPARISON: Prior mammograms were reviewed, the most recent being March 2020.. FINDINGS: There are no CAD designations. There are no new spiculated masses nor malignant appearing microcalcification groups. In the right breast the described benign-appearing nodular density There is no significant architectural distortion nor skin thickening-retraction. IMPRESSION: No radiographic evidence of malignancy. BI-RADS Category 1 - Negative Breast Density - Category A - Almost entirely fatty Breast density Category C or D implies that the patient has dense breast tissue. Dense breast tissue can make it harder to find cancer on a mammogram. Dense breast tissue is also associated with an incr eased risk of breast cancer. This information about the result of the mammogram report was provided to the patient to raise their awareness. Use this report when you speak with the patient about their risks for breast cancer, which includes their family history. At that time, you may recommend additional screening tests (Ultrasoun d or MRI) as these tests may add significant information. A negative radiographic report should not delay biopsy if a dominant or clinically suspicious mass is present. Up to ten percent of cancers are not identified on mammography. A negative report may reinforce clinical impression. Adenosis and dense breasts may obscure an underlying neoplasm. False positive reports average 6 to 10%. Patient will receive a letter notifying them of these results.
== END 2021-05-14 01:24 ==
PROVIDERS: PCP Nurse Practitioner; Visit Provider Nurse Practitioner
DX: Z12.31 Encounter for screening mammogram for malignant neoplasm of breast (principal)
CPT/HCPCS: 77063; 77067

== ENCOUNTER 2021-06-18 03:36 | Outpatient (CLI) | payer OTHER, SELFPAY ==
--- OUTSIDE RECORDS SUMMARY | 2021-06-18 03:37 | XMS_ITS ---
:1970 Author Organization [address] [phone] Care Team Providers Name Role Phone AnthonyMalgorzata harrison Unavailable Unavailable PROBLEMS Type Condition ICD9-CM Code QWB26-MB Code Onset Condition SNO MED Code Dates Status Problem Major depressive F32.9 Active [id number] [id number] disorder with current active episode, unspecified depression episode severity, unspecified whether recurrent Problem PTSD F43.10 Active [id number] (post-traumatic stress disorder) ALLERGIES Substance Reaction Event Type Date Status Latex Unknown Drug Allergy June, Active ENCOUNTERS Encounter Location Date Diagnosis [address], June, Major de pressive disorder [place] [id number] with current act tiffany episode, unspeci fied depression episo de severity, unspec ified whether recurren t F32.9 and PTSD (post-t raumatic stress disorder) F43.[address], May, PTSD (po st-traumatic [place] [id number] stress disorder) F43.10 and Major depres sive disorder with cu rrent active episode, unspecified depr ession episode severity , unspecified whet her recurrent F32.[address] May, [place], [place] [id number] [address], Apr, Major depressive disorder Care [place] [id number] with current act tiffany episode, unspeci fied depression episo de severity, unspec ified whether recurren t F32.[address], Apr, [facility] [id number] IMMUNIZATIONS No Known Immunizations SOCIAL HISTORY Never Assessed REASON FOR REFERRAL FUNCTIONAL STATUS PLAN OF CARE Activity Details Future Appointment Provider Name:Malgorzata ibarra, 2021-07-12 03:30:00 PM, [address], [place], [id number], VITAL SIGNS Height 60 in 2021-05-19 Weight 237 lbs 2021-05-19 BMI 46.28 kg/m2 2021-05-19 Blood pressure systolic 124 mmHg 2021-05-19 Blood pressure diastolic 80 mmHg 2021-05-19 MEDICATIONS Medication Instructions Dosage Frequency Start End Duration Statu s Date Date [place] Thyroid Orally Once a 1 tab 24h Act tiffany 60 MG day lamoTRIgine 25 Orally qd 1 tablet 24h 30 day(s) Acti ve MG Ativan 0.5 MG Orally BID for 1 tab May, 30 days Act tiffany anxiety 2021 lamoTRIgine 150 Orally Once a 1 tablet 24h May, 30 day(s) Active MG day 2021 cloNIDine HCl Orally Once a take 1/2 24h 30 day(s) N ot-Takin 0.1 MG day tab for 1 g week and then increase to 1 tab lamoTRIgine 150 Orally Once a 1 tablet 24h May, 90 days A ctive MG day 2021 Lisinopril 10 Orally every 1 tab Activ e MG day Magnesium 500 Orally Once a 1 tab 24h Acti ve MG day PROCEDURES Procedure Date Ordered Result Body Site PSYCH DIAG EVAL W/MED SRVCS May 19, 2021 RESULTS No Results REASON FOR VISIT med f/u, med f/u, med f/u, doing pretty well I think, intake, i was not happy with my new provider at [facility] glad you could take me, PCP and PMM, 04/30 Release [facility] Medical, Release [facility] and [facility] Insurance Providers [facility] Member Patient Patient Patient Patient Patient Subscriber Subscriber Subscriber Group Insurance Plan Plan Plan Plan ID Relationship Address Phone Name Date of ID Name Date of No Type Insurance Insurance Insurance Coverage to Subscriber Address Phone Name Dates [phone] [employer] self Yamile [id number] H [id number] Behavioral [id number] [facility]/ [place] [address] [facility] [phone] HEALTH self Yamile [id number] [id number] [place] [id number]
[2021-06-18 13:22] LABS: BUN 18 mg/dL (7-18); CREATININE 1.2 mg/dL (0.55-1.02); Calcium 8.9 mg/dL (8.5-10.1); Chloride 104 mmol/L (98-107); Estimated GFR 47.36 (mL/min/1.73m2); Glucose 92 mg/dL (74-106); Potassium 4.1 mmol/L (3.5-5.1); Sodium 140 mmol/L (136-145)
== END 2021-06-18 03:37 | disposition home or self-care (01) ==
LOC: LBO 03:36
PROVIDERS: PCP Nurse Practitioner; Visit Provider Nurse Practitioner
DX: I10 Essential (primary) hypertension (principal)
CPT/HCPCS: 36415; 80048

== ENCOUNTER 2021-06-29 02:45 | Outpatient (CLI) | payer OTHER, SELFPAY ==
[2021-06-29 13:17] LABS: Abs Immature Grans 0.03 10^3/uL (0.0-0.06); Absolute Basophil Count 0.05 10^3/uL (0.0-0.2); Absolute Eosinophil Count 0.24 10^3/uL (0.0-0.7); Absolute Lymphocyte Count 2.18 10^3/uL (1.2-3.4); Absolute Monocyte Count 0.54 10^3/uL (0.1-0.8); Basophils % 0.5; Eosinophils % 2.4; HCT 45.2 % (36.0-46.0); HGB 14.5 g/dL (11.2-15.7); Immature Grans % 0.3; Lymphocytes % 21.9; MCH 29.9 pg (27.0-33.0); MCHC 32.1 % (32.0-36.0); MCV 93 fL (80-95); MPV 9.8 fL (8.0-11.0); Monocytes % 5.4; Neutrophils % 69.5; Platelet Count 333 10^3/uL (130-400); RBC 4.85 10^6/uL (3.93-5.22); RDW 14.3 % (11.7-14.6); RDW-SD 49.2 fL; WBC 9.94 10^3/uL (4.4-10.8)
[2021-06-29 14:10] LABS: Hemoglobin A1C 5.4 % (<5.7)
[2021-06-29 14:43] LABS: ALT 27 U/L (14-59); AST 15 U/L (15-37); Albumin 4.2 g/dL (3.4-5.0); Alkaline Phosphatase 105 U/L (46-116); BUN 12 mg/dL (7-18); Bilirubin, Total 0.4 mg/dL (0.2-1.0); Calcium 9.4 mg/dL (8.5-10.1); Calculated LDL 89 mg/dL (<100); Chloride 105 mmol/L (98-107); Cholesterol 178 mg/dL (<200); Estimated GFR 58.45 (mL/min/1.73m2); Ferritin 32 ng/mL (8-252); Glucose 97 mg/dL (74-106); HDL Cholesterol 77 mg/dL (40-60); Potassium 5.1 mmol/L (3.5-5.1); Sodium 142 mmol/L (136-145); TSH 1.68 uIU/mL (0.36-3.74); Total Protein 7.6 g/dL (6.4-8.2); Triglyceride 60 mg/dL (<150); Vitamin B12 985 pg/mL (193-986)
[2021-07-01 15:07] LABS: Vitamin D 25 Total 87.1 ng/mL (30-100)
== END 2021-06-29 02:46 | disposition home or self-care (01) ==
LOC: LBO 02:46
PROVIDERS: PCP Nurse Practitioner; Visit Provider Surgery
DX: E66.01 Morbid (severe) obesity due to excess calories (principal); Z68.42 Body mass index [BMI] 45.0-49.9, adult
CPT/HCPCS: 36415; 80053; 80061; 82306; 82607; 82728; 83036; 83525; 84443; 85025

== ENCOUNTER 2021-09-22 02:38 | Outpatient (CLI) | payer OTHER, SELFPAY ==
[2021-09-22 08:12] LABS: Anion Gap 7.2 mmol/L (3-11); BUN 14 mg/dL (7-18); CO2 28.8 mmol/L (21.0-32.0); CREATININE 1.1 mg/dL (0.55-1.02); Chloride 105 mmol/L (98-107); Estimated GFR 52.36 (mL/min/1.73m2); Glucose 92 mg/dL (74-106); Potassium 4.1 mmol/L (3.5-5.1); Sodium 141 mmol/L (136-145)
== END 2021-09-22 02:39 | disposition home or self-care (01) ==
PROVIDERS: PCP Nurse Practitioner; Visit Provider Surgery
DX: I10 Essential (primary) hypertension (principal)
CPT/HCPCS: 36415; 80048

== ENCOUNTER 2022-03-14 03:24 | Outpatient (CLI) | payer OTHER, SELFPAY ==
[2022-03-14 13:01] LABS: Abs Immature Grans 0.04 10^3/uL (0.0-0.06); Absolute Basophil Count 0.06 10^3/uL (0.0-0.2); Absolute Eosinophil Count 0.19 10^3/uL (0.0-0.7); Absolute Lymphocyte Count 2.48 10^3/uL (1.2-3.4); Absolute Monocyte Count 0.62 10^3/uL (0.1-0.8); Absolute Neutrophil Count 6.64 10^3/uL (1.2-6.7); Basophils % 0.6; Eosinophils % 1.9; HCT 42.4 % (36.0-46.0); HGB 13.7 g/dL (11.2-15.7); Immature Grans % 0.4; Lymphocytes % 24.7; MCH 28.7 pg (27.0-33.0); MCHC 32.3 % (32.0-36.0); MCV 89 fL (80-95); MPV 9.8 fL (8.0-11.0); Monocytes % 6.2; Neutrophils % 66.2; Platelet Count 411 10^3/uL (130-400); RBC 4.77 10^6/uL (3.93-5.22); RDW 14.2 % (11.7-14.6); RDW-SD 45.8 fL; WBC 10.03 10^3/uL (4.4-10.8)
[2022-03-14 13:18] LABS: Hemoglobin A1C 5.3 % (<5.7)
[2022-03-14 13:43] LABS: ALT 17 U/L (14-59); AST 16 U/L (15-37); Alkaline Phosphatase 94 U/L (46-116); Anion Gap 8.2 mmol/L (3-11); BUN 15 mg/dL (7-18); Bilirubin, Total 0.3 mg/dL (0.2-1.0); CO2 27.8 mmol/L (21.0-32.0); Calcium 9.6 mg/dL (8.5-10.1); Calculated LDL 56 mg/dL (<100); Chloride 103 mmol/L (98-107); Cholesterol 126 mg/dL (<200); Estimated GFR 67.78 (mL/min/1.73m2); Glucose 89 mg/dL (74-106); HDL Cholesterol 61 mg/dL (40-60); Potassium 3.8 mmol/L (3.5-5.1); Sodium 139 mmol/L (136-145); TSH 1.39 uIU/mL (0.36-3.74); Total Protein 7.8 g/dL (6.4-8.2); Triglyceride 45 mg/dL (<150); Vitamin B12 781 pg/mL (193-986)
[2022-03-14 14:07] LABS: FREE T4 0.98 ng/dL (0.76-1.46)
[2022-03-14 14:27] LABS: Vitamin D 25 Total 94.1 ng/mL (30-100)
[2022-03-14 22:59] LABS: T3, Total 148 ng/dL (97-169)
[2022-03-17 09:06] LABS: Insulin 12.2 uIU/mL (<29.0)
== END 2022-03-14 03:25 | disposition home or self-care (01) ==
PROVIDERS: PCP Nurse Practitioner Family; Visit Provider Surgery
DX: E66.01 Morbid (severe) obesity due to excess calories (principal); E88.81 Metabolic syndrome and other insulin resistance; E03.9 Hypothyroidism, unspecified
CPT/HCPCS: 36415; 80053; 80061; 82306; 82607; 83036; 83525; 84439; 84443; 84480; 85025

== ENCOUNTER 2022-05-13 11:29 | Outpatient (CLI) | payer OTHER, SELFPAY ==
[2022-05-13 09:02] LABS: Abs Immature Grans 0.02 10^3/uL (0.0-0.06); Absolute Basophil Count 0.04 10^3/uL (0.0-0.2); Absolute Eosinophil Count 0.16 10^3/uL (0.0-0.7); Absolute Monocyte Count 0.48 10^3/uL (0.1-0.8); Absolute Neutrophil Count 5.47 10^3/uL (1.2-6.7); Basophils % 0.5; HCT 40.3 % (36.0-46.0); HGB 12.7 g/dL (11.2-15.7); Immature Grans % 0.3; Lymphocytes % 22.6; MCH 27.7 pg (27.0-33.0); MCHC 31.5 % (32.0-36.0); MCV 88 fL (80-95); MPV 9.7 fL (8.0-11.0); Neutrophils % 68.6; Platelet Count 415 10^3/uL (130-400); RBC 4.59 10^6/uL (3.93-5.22); RDW 15.1 % (11.7-14.6); RDW-SD 48.1 fL; WBC 7.97 10^3/uL (4.4-10.8)
[2022-05-13 09:29] LABS: ALT 23 U/L (14-59); AST 14 U/L (15-37); Albumin 3.8 g/dL (3.4-5.0); Alkaline Phosphatase 97 U/L (46-116); Anion Gap 8.1 mmol/L (3-11); BUN 22 mg/dL (7-18); Bilirubin, Total 0.3 mg/dL (0.2-1.0); CO2 29.9 mmol/L (21.0-32.0); CREATININE 1.1 mg/dL (0.55-1.02); Calcium 9.7 mg/dL (8.5-10.1); Chloride 105 mmol/L (98-107); Estimated GFR 60.46 (mL/min/1.73m2); Glucose 87 mg/dL (74-106); Potassium 3.9 mmol/L (3.5-5.1); Sodium 143 mmol/L (136-145); Total Protein 7.8 g/dL (6.4-8.2)
[2022-05-13 20:16] LABS: Estradiol 28 pg/mL (See Note); Progesterone 3.1 ng/mL (See Table)
[2022-05-18 14:16] LABS: Testosterone, Free 0.59 ng/dL (<0.13-0.92); Testosterone, Total 22 ng/dL (8-60)
== END 2022-05-13 11:30 | disposition home or self-care (01) ==
LOC: LBO 11:29
PROVIDERS: Visit Provider Naturopath
DX: N95.1 Menopausal and female climacteric states (principal); R79.89 Other specified abnormal findings of blood chemistry
CPT/HCPCS: 36415; 80053; 84402; 84403; 82670; 84144; 85025

== ENCOUNTER 2022-05-24 01:53 | Outpatient (CLI) | payer OTHER, SELFPAY ==
--- NOTE | 2022-05-24 | DI.MAMMO_ITS ---
Exam(s) MAMMO SCREENING EXAM: MAMMO SCREENING CLINICAL HISTORY: BREAST CANCER SCREENING Z12.31 TECHNIQUE: Bilateral full field digital CC and MLO mammographic images were obtained with 3D tomosyn thesis and utilizing computer aided detection (CAD). COMPARISON: Available for comparison. FINDINGS: Masses/Architectural Distortion: There is a stable area of nodularity in the upper-outer quadrant of the right breast. No suspicious nodules or areas of architectural distortion are seen. Microcalcifications: No suspicious pleomorphic-type are seen. Skin Thickening/Nipple Retraction: None. IMPRESSION: 1. No significant interval change with no specific features of malignancy noted. 2. Unless there is more urgent need, screening mammography is recommended, as per [place] [employer] guidelines. BI-RADS Category 2 - Benign Findings Breast Density - Category A - Almost entirely fatty Breast density category C or D implies that the patient has dense breast tissue. Dense breast tissue is very common and is not abnormal but dense breast tissue can make it harder to find cancer on a ma mmogram. Also, dense breast tissue may increase their breast cancer risk. This information about the result of the mammogram report was provided to the patient to raise their awareness. Use this report when you speak with the patient about their risks for breast cancer, which includes their family hist ory. At that time, you may recommend for more screening tests (Ultrasound or MRI) as they might be us eful based on their risk. A negative radiographic report should not delay biopsy if a dominant or clinically suspicious mass is present. Up to ten percent of cancers are not identified on mammography. A negative report may reinforce clinical impression. Adenosis and dense breasts may obscure an underlying neoplasm. False positive reports average 6 to 10%. Patient will receive a letter notifying them of these results.
== END 2022-05-24 02:13 ==
LOC: DI 01:54
PROVIDERS: Visit Provider Nurse Practitioner Family
DX: Z12.31 Encounter for screening mammogram for malignant neoplasm of breast (principal)
CPT/HCPCS: 77063; 77067

== ENCOUNTER 2022-09-27 04:51 | Outpatient (CLI) | payer OTHER, SELFPAY ==
[2022-09-27 10:30] LABS: Abs Immature Grans 0.02 10^3/uL (0.0-0.06); Absolute Basophil Count 0.03 10^3/uL (0.0-0.2); Absolute Eosinophil Count 0.14 10^3/uL (0.0-0.7); Absolute Lymphocyte Count 1.79 10^3/uL (1.2-3.4); Absolute Monocyte Count 0.49 10^3/uL (0.1-0.8); Absolute Neutrophil Count 6.58 10^3/uL (1.2-6.7); Basophils % 0.3; Eosinophils % 1.5; HGB 14.3 g/dL (11.2-15.7); Immature Grans % 0.2; Lymphocytes % 19.8; MCH 27.4 pg (27.0-33.0); MCHC 31.8 % (32.0-36.0); MCV 86 fL (80-95); MPV 9.5 fL (8.0-11.0); Monocytes % 5.4; Neutrophils % 72.8; Platelet Count 402 10^3/uL (130-400); RBC 5.21 10^6/uL (3.93-5.22); RDW 15.7 % (11.7-14.6); RDW-SD 49.6 fL; WBC 9.05 10^3/uL (4.4-10.8)
[2022-09-27 11:45] LABS: ALT 14 U/L (14-59); AST 13 U/L (15-37); Albumin 3.9 g/dL (3.4-5.0); Alkaline Phosphatase 91 U/L (46-116); Anion Gap 7.3 mmol/L (3-11); BUN 16 mg/dL (7-18); Bilirubin, Total 0.5 mg/dL (0.2-1.0); CO2 27.7 mmol/L (21.0-32.0); Calcium 9.8 mg/dL (8.5-10.1); Chloride 103 mmol/L (98-107); Estimated GFR 67.78 (mL/min/1.73m2); Glucose 90 mg/dL (74-106); Sodium 138 mmol/L (136-145); Total Protein 7.7 g/dL (6.4-8.2)
== END 2022-09-27 04:52 | disposition home or self-care (01) ==
PROVIDERS: Visit Provider Naturopath
DX: R42 Dizziness and giddiness (principal); R79.89 Other specified abnormal findings of blood chemistry
CPT/HCPCS: 36415; 80053; 85025

== ENCOUNTER 2023-01-13 03:11 | Outpatient (CLI) | payer OTHER, SELFPAY ==
[2023-01-13 11:12] LABS: Abs Immature Grans 0.02 10^3/uL (0.0-0.06); Absolute Basophil Count 0.05 10^3/uL (0.0-0.2); Absolute Eosinophil Count 0.15 10^3/uL (0.0-0.7); Absolute Lymphocyte Count 1.92 10^3/uL (1.2-3.4); Absolute Monocyte Count 0.57 10^3/uL (0.1-0.8); Absolute Neutrophil Count 5.75 10^3/uL (1.2-6.7); Basophils % 0.6; Eosinophils % 1.8; HCT 42.5 % (36.0-46.0); HGB 13.8 g/dL (11.2-15.7); Immature Grans % 0.2; Lymphocytes % 22.7; MCH 28.5 pg (27.0-33.0); MCHC 32.5 % (32.0-36.0); MCV 88 fL (80-95); MPV 9.5 fL (8.0-11.0); Monocytes % 6.7; Platelet Count 407 10^3/uL (130-400); RBC 4.85 10^6/uL (3.93-5.22); RDW 13.9 % (11.7-14.6); RDW-SD 44.7 fL; WBC 8.46 10^3/uL (4.4-10.8)
[2023-01-13 11:48] LABS: ALT 18 U/L (14-59); AST 12 U/L (15-37); Albumin 3.8 g/dL (3.4-5.0); Alkaline Phosphatase 89 U/L (46-116); Anion Gap 8.1 mmol/L (3-11); BUN 16 mg/dL (7-18); Bilirubin, Total 0.4 mg/dL (0.2-1.0); CO2 27.9 mmol/L (21.0-32.0); Calcium 9.7 mg/dL (8.5-10.1); Chloride 104 mmol/L (98-107); Estimated GFR 67.78 (mL/min/1.73m2); Glucose 88 mg/dL (74-106); Potassium 4.2 mmol/L (3.5-5.1); Sodium 140 mmol/L (136-145); T4 9.8 ug/dL (4.7-13.3); TSH 0.08 uIU/mL (0.36-3.74); Total Protein 7.6 g/dL (6.4-8.2)
[2023-01-13 12:06] LABS: Vitamin D 25 Total 97.7 ng/mL (30-100)
[2023-01-13 20:16] LABS: T3,Free 5.4 pg/mL (2.8-5.3)
== END 2023-01-13 03:12 | disposition home or self-care (01) ==
PROVIDERS: Visit Provider Naturopath
DX: R42 Dizziness and giddiness (principal); E03.9 Hypothyroidism, unspecified; R79.89 Other specified abnormal findings of blood chemistry
CPT/HCPCS: 36415; 80053; 82306; 84436; 84443; 84481; 85025

== ENCOUNTER 2023-07-18 05:17 | Outpatient (CLI) | payer OTHER, SELFPAY ==
[2023-07-18 14:23] LABS: ALT 19 U/L (14-59); AST 15 U/L (15-37); Albumin 3.9 g/dL (3.4-5.0); Alkaline Phosphatase 88 U/L (46-116); Anion Gap 7.2 mmol/L (3-11); BUN 20 mg/dL (7-18); Bilirubin, Total 0.3 mg/dL (0.2-1.0); CO2 30.8 mmol/L (21.0-32.0); Calcium 9.6 mg/dL (8.5-10.1); Calculated LDL 61 mg/dL (<100); Chloride 102 mmol/L (98-107); Cholesterol 137 mg/dL (<200); Estimated GFR 67.36 (mL/min/1.73m2); Glucose 79 mg/dL (74-106); HDL Cholesterol 65 mg/dL (40-60); Potassium 4.2 mmol/L (3.5-5.1); Sodium 140 mmol/L (136-145); TSH 2.25 uIU/Ml (0.36-3.74); Total Protein 7.2 g/dL (6.4-8.2); Triglyceride 58 mg/dL (<150)
[2023-07-18 14:24] LABS: Hemoglobin A1C 5.5 % (<5.7)
[2023-07-18 23:46] LABS: HIV-1/2 Ag & Ab Screen Negative (Negative); Hepatitis C Ab w Rflx HCV PCR Negative (Negative)
== END 2023-07-18 05:18 | disposition home or self-care (01) ==
PROVIDERS: Visit Provider Family Medicine
DX: E03.9 Hypothyroidism, unspecified (principal); I10 Essential (primary) hypertension; Z11.59 Encounter for screening for other viral diseases; E88.819 Insulin resistance, unspecified
CPT/HCPCS: 36415; 80053; 80061; 86803; 87389; 83036; 84443

== ENCOUNTER 2024-04-23 01:41 | Outpatient (CLI) | payer OTHER, SELFPAY ==
[2024-04-23 10:50] LABS: Abs Immature Grans 0.03 10^3/uL (0.0-0.06); Absolute Basophil Count 0.06 10^3/uL (0.0-0.2); Absolute Eosinophil Count 0.23 10^3/uL (0.0-0.7); Absolute Monocyte Count 0.49 10^3/uL (0.1-0.8); Absolute Neutrophil Count 5.67 10^3/uL (1.2-6.7); Basophils % 0.7 %; Eosinophils % 2.8 %; HCT 43.9 % (36.0-46.0); HGB 14.4 g/dL (11.2-15.7); Immature Grans % 0.4 %; Lymphocytes % 21.7 %; MCH 29.7 pg (27.0-33.0); MCHC 32.8 % (32.0-36.0); MCV 91 fL (80-95); MPV 9.4 fL (8.0-11.0); Monocytes % 5.9 %; Neutrophils % 68.5 %; Platelet Count 372 10^3/uL (130-400); RBC 4.85 10^6/uL (3.93-5.22); RDW 13.7 % (11.7-14.6); RDW-SD 45.9 fL; WBC 8.28 10^3/uL (4.4-10.8)
[2024-04-23 11:26] LABS: Hemoglobin A1C 5.3 % (<5.7)
[2024-04-23 11:29] LABS: Iron 63 ug/dL (50-170); Total Iron Binding Capacity 340 ug/dL (250-450); Transferrin Sat 19 % (15-50)
[2024-04-23 11:48] LABS: ALT 18 U/L (14-59); AST 15 U/L (15-37); Albumin 3.9 g/dL (3.4-5.0); Alkaline Phosphatase 84 U/L (46-116); BUN 16 mg/dL (7-18); Bilirubin, Total 0.4 mg/dL (0.2-1.0); CREATININE 0.9 mg/dL (0.55-1.02); Calcium 9.7 mg/dL (8.5-10.1); Calculated LDL 47 mg/dL (<100); Chloride 103 mmol/L (98-107); Cholesterol 126 mg/dL (<200); Estimated GFR 75.97 (mL/min/1.73m2); Glucose 80 mg/dL (74-106); HDL Cholesterol 72 mg/dL (>or=50); Magnesium 2.2 mg/dL (1.8-2.4); Potassium 3.9 mmol/L (3.5-5.1); Sodium 140 mmol/L (136-145); T4 9.3 ug/dL (4.7-13.3); TSH 2.08 uIU/mL (0.36-3.74); Total Protein 7.5 g/dL (6.4-8.2); Triglyceride 36 mg/dL (<150)
[2024-04-23 11:58] LABS: Vitamin D 25 Total 106 ng/mL (30-100)
[2024-04-23 17:59] LABS: CRP, High Sensitivity 0.66 mg/L (See Note)
[2024-04-23 18:16] LABS: T3,Free 5.1 pg/mL (2.8-5.3)
[2024-04-23 19:07] LABS: Estradiol 22 pg/mL (See Note); Progesterone 2.3 ng/mL (See Table)
[2024-04-24 09:42] LABS: DHEA Sulfate 489 ug/dL (56-283)
[2024-04-24 09:47] LABS: Insulin 3.6 uIU/mL (<29.0)
[2024-04-29 16:20] LABS: Testosterone, Free 0.52 ng/dL (<0.13-0.92); Testosterone, Total 40 ng/dL (8-60)
== END 2024-04-23 01:42 | disposition home or self-care (01) ==
PROVIDERS: Visit Provider Naturopath
DX: E03.9 Hypothyroidism, unspecified (principal); R79.89 Other specified abnormal findings of blood chemistry; N95.8 Other specified menopausal and perimenopausal disorders; E55.9 Vitamin D deficiency, unspecified; Z13.220 Encounter for screening for lipoid disorders; Z13.1 Encounter for screening for diabetes mellitus
CPT/HCPCS: 36415; 80053; 80061; 82306; 82533; 82627; 84402; 84403; 86141; 82670; 83036; 83525; 83540; 83550; 83735; 84144; 84436; 84443; 84481; 85025

== ENCOUNTER 2024-08-19 02:31 | Outpatient (CLI) | payer OTHER, SELFPAY ==
--- NOTE | 2024-08-19 | DI.MAMMO_ITS ---
Exam(s) MAMMO SCREENING EXAM: MAMMO SCREENING CLINICAL HISTORY: Screening, Z12.31 TECHNIQUE: Bilateral full field digital CC and MLO mammographic images were obtained with 3D tomosynthesis and utilizing computer aided detection (CAD). COMPARISON: Comparison is made with prior examinations. FINDINGS: Masses/Architectural Distortion: No suspicious masses or areas of architectural distortion are present. The nodule in the upper outer right breast appears stable. Microcalcifications: No suspicious pleomorphic-type are seen. Skin Thickening/Nipple Retraction: None. IMPRESSION: 1. No significant interval change with no specific features of malignancy noted. 2. Unless there is more urgent need, screening mammography is recommended, as per [place] [employer] guidelines. BI-RADS Category 2 - Benign Findings Breast Density - Category B - There are scattered areas of fibroglandular density. Breast density Category C or D implies that the patient has dense breast tissue. Dense breast tissue can make it harder to find cancer on a mammogram. Dense breast tissue is also associated with an increased risk of breast cancer. This information about the result of the mammogram report was provided to the patient to raise their awareness. Use this report when you speak with the patient about their risks for breast cancer, which includes their family history. At that time, you may recommend additional screening tests (Ultrasound or MRI) as these tests may add significant information. A negative radiographic report should not delay biopsy if a dominant or clinically suspicious mass is present. Up to ten percent of cancers are not identified on mammography. A negative report may reinforce clinical impression. Adenosis and dense breasts may obscure an underlying neoplasm. False positive reports average 6 to 10%. Patient will receive a letter notifying them of these results.
== END 2024-08-19 02:51 ==
PROVIDERS: PCP Student in an Organized Health Care Education/Training Program; Visit Provider Student in an Organized Health Care Education/Training Program
DX: Z12.31 Encounter for screening mammogram for malignant neoplasm of breast (principal); R92.323 Mammographic fibroglandular density, bilateral breasts
CPT/HCPCS: 77063; 77067

== ENCOUNTER 2024-09-30 04:47 | Outpatient (CLI) | payer OTHER, SELFPAY ==
[2024-09-30 10:39] LABS: Abs Immature Grans 0.02 10^3/uL (0.0-0.06); HCT 40.4 % (36.0-46.0); HGB 13.1 g/dL (11.2-15.7); Immature Grans % 0.2 %; MCH 29.4 pg (27.0-33.0); MCHC 32.4 % (32.0-36.0); MCV 91 fL (80-95); MPV 9.2 fL (8.0-11.0); Platelet Count 352 10^3/uL (130-400); RBC 4.46 10^6/uL (3.93-5.22); RDW 13.7 % (11.7-14.6); RDW-SD 45.7 fL; WBC 8.56 10^3/uL (4.4-10.8)
[2024-09-30 11:15] LABS: Hemoglobin A1C 5.1 % (<5.7)
[2024-09-30 11:59] LABS: ALT 18 U/L (14-59); AST 13 U/L (15-37); Albumin 3.6 g/dL (3.4-5.0); Alkaline Phosphatase 71 U/L (46-116); Anion Gap 9.8 mmol/L (3-11); BUN 9 mg/dL (7-18); Bilirubin, Total 0.4 mg/dL (0.2-1.0); CO2 27.2 mmol/L (21.0-32.0); Calcium 8.9 mg/dL (8.5-10.1); Calculated LDL 51 mg/dL (<100); Chloride 104 mmol/L (98-107); Cholesterol 115 mg/dL (<200); Estimated GFR 75.97 (mL/min/1.73m2); Glucose 89 mg/dL (74-106); HDL Cholesterol 55 mg/dL (>or=50); Magnesium 2.0 mg/dL (1.8-2.4); Potassium 3.9 mmol/L (3.5-5.1); Sodium 141 mmol/L (136-145); TSH 2.25 uIU/mL (0.36-3.74); Total Protein 7.0 g/dL (6.4-8.2); Triglyceride 46 mg/dL (<150)
[2024-09-30 12:35] LABS: Vitamin D 25 Total 103 ng/mL (30-100)
[2024-09-30 13:16] LABS: T4 8.6 ug/dL (4.7-13.3)
[2024-09-30 17:43] LABS: CRP, High Sensitivity 0.54 mg/L (See Note)
[2024-09-30 17:57] LABS: T3,Free 5.1 pg/mL (2.8-5.3)
[2024-10-01 11:53] LABS: Transferrin 233 mg/dL (201-352)
[2024-10-10 19:30] LABS: Testosterone, Free 1.2 pg/mL (0.1-6.4)
== END 2024-09-30 04:48 | disposition home or self-care (01) ==
PROVIDERS: PCP Student in an Organized Health Care Education/Training Program; Visit Provider Naturopath
DX: E03.9 Hypothyroidism, unspecified (principal); R79.89 Other specified abnormal findings of blood chemistry; N95.8 Other specified menopausal and perimenopausal disorders; E55.9 Vitamin D deficiency, unspecified; Z13.220 Encounter for screening for lipoid disorders; Z13.1 Encounter for screening for diabetes mellitus
CPT/HCPCS: 36415; 80053; 80061; 82306; 82533; 82627; 84402; 84403; 86141; 82670; 83036; 83525; 83735; 84144; 84436; 84439; 84443; 84466; 84481; 85025